=== PATIENT | female | born 1960 | race Caucasian/White ===

== ENCOUNTER → 2018-04-26 | Outpatient (CLI) | payer OTHER ==
[~2018-04-26] MED LIST: ALEN10TA6 PO; CABE0.5T PO; CALC1CAP8 PO; DOXA2TAB9 PO; FLUD0.1T PO; FLUO20TA25 PO; HYDR-3240 PO; HYDR10TA11 PO; HYDR20TA22 PO; LEVO150T PO; LOSA25TA6 PO; VITAMIN B12 PO; WOMEN'S ONE A DAY PO
[2018-04-26 12:04] LABS: ALANINE AMINOTRANSFERASE 24 U/L (12-78); ALBUMIN 3.6 g/dL (3.4-5.0); ANION GAP 7 mmol/L (5-15); CHLORIDE 101 mmol/L (98-107); CREATININE 1.12 mg/dL (0.55-1.02)
[2018-04-26 12:06] LABS: ALKALINE PHOSPHATASE 50 U/L (45-117); BILIRUBIN,TOTAL 0.5 mg/dL (0.2-1.0); TOTAL PROTEIN 7.6 g/dL (6.4-8.2)
== END | disposition home or self-care (01) ==
LOC: STAR 11:14
PROVIDERS: ATTEND Surgery
DX: Z01.818 Encounter for other preprocedural examination (principal)
CPT/HCPCS: 36415; 80053; 93005

== ENCOUNTER 2018-05-02 08:04 | Inpatient (IN) | payer OTHER ==
[2018-04-26 11:48] VITALS: BP 174/88
[~2018-05-02] VITALS: Ht 162.6 cm; Wt 62.7 kg
[~2018-05-02 08:04] MED LIST changes: +BUPIVACAINE/PF-EPI 0.5% 1:200K ONE; -HYDR-3240 PO
[2018-05-02] MEDS ORDERED: LACTATED RINGERS 1,000 ML IV SCH (08:26)
[2018-05-02] MEDS ORDERED: ONDANSETRON ODT 8 MG PO ONE (08:30)
[2018-05-02] MEDS ORDERED: ACETAMINOPHEN 500 MG TABLET PO ONE (08:30)
[2018-05-02] MEDS ORDERED: FENTANYL PF 100 MCG/2ML ONE ×2 (08:34→12:11)
[2018-05-02] MEDS ORDERED: DEXAMETHASONE 4 MG/ML, 1ML ONE ×2 (08:35)
[2018-05-02] MEDS ORDERED: CEFAZOLIN 1,000 MG ONE ×2 (08:35)
[2018-05-02] MEDS ORDERED: PROPOFOL 10 MG/ML, 20ML ONE ×2 (08:35)
[2018-05-02] MEDS ORDERED: LIDOCAINE-MPF 2% ,5ML ONE ×2 (08:35)
[2018-05-02] MEDS ORDERED: ROCURONIUM 10MG/ML,5ML ONE (08:35)
[2018-05-02] MEDS ORDERED: MIDAZOLAM 1 MG/ML, 2ML ONE (08:35)
[2018-05-02] MEDS ORDERED: SUCCINYLCHOLINE 20 MG/ML, 10ML ONE (08:35)
[2018-05-02] MEDS ORDERED: hydrALAzine 20 MG/ML, 1ML IV PRN ×2 (09:00→14:30)
[2018-05-02] MEDS ORDERED: LORazepam 2 MG/ML, 1ML IVPush PRN (09:00)
[2018-05-02] MEDS ORDERED: MEPERIDINE/PF 25MG/0.5ML IVPush PRN (09:00)
[2018-05-02] MEDS ORDERED: OXYcodone 5 MG/5 ML ORAL.SOL UDC PO PRN (09:00)
[2018-05-02] MEDS ORDERED: MIDAZOLAM 1 MG/ML, 2ML IV PRN (09:00)
[2018-05-02] MEDS ORDERED: HYDROmorphone 1 MG/ML, 1ML IV PRN (09:00)
[2018-05-02] MEDS ORDERED: DIAZEPAM 5 MG/ML, 2ML IVPush PRN (09:00)
[2018-05-02] MEDS ORDERED: METOPROLOL 1 MG/ML, 5ML IV PRN (09:00)
[2018-05-02] MEDS ORDERED: EPHEDRINE 50 MG/ML, 1ML IVPush PRN (09:00)
[2018-05-02] MEDS ORDERED: ALBUTEROL SULFATE 2.5 MG/3 ML NPPB PRN (09:00)
[2018-05-02] MEDS ORDERED: MORPHINE SULFATE 4 MG/ML, 1ML IVPush PRN (09:00)
[2018-05-02] MEDS ORDERED: LABETALOL 5MG/ML, 20ML IV PRN (09:00)
[2018-05-02] MEDS ORDERED: DIPHENHYDRAMINE 50 MG/ML, 1ML IVPush PRN (09:00)
[2018-05-02] MEDS ORDERED: PROCHLORPERAZINE 5 MG/ML, 2ML IV PRN (09:00)
[2018-05-02] MEDS ORDERED: PHENYLEPHRINE 10 MG/ML ONE (10:57)
[2018-05-02] MEDS ORDERED: NEOSTIGMINE 1 MG/ML, 10ML ONE (11:06)
[2018-05-02] MEDS ORDERED: GLYCOPYRROLATE 0.4 MG/2 ML, 2ML ONE (11:42)
[2018-05-02] MEDS ORDERED: OXYcodone 5 MG/5 ML ORAL.SOL UDC ONE (12:11)
[2018-05-02] MEDS: FENTANYL PF 100 MCG/2ML IV PRN ×2 (12:13→12:40)
[2018-05-02] MEDS ORDERED: ONDANSETRON 2MG/ML, 2ML IV PRN (14:30)
[2018-05-02] MEDS ORDERED: ACETAMINOPHEN 325 MG TABLET PO PRN (14:30)
[2018-05-02] MEDS ORDERED: ACETAMINOPHEN 650 MG SUPP PR PRN (14:30)
[2018-05-02] MEDS ORDERED: HYDROcodone/APAP 5/325 TABLET PO PRN (14:30)
[2018-05-02] MEDS: HEPARIN 5,000 UNITS/ML, 1ML SQ SCH ×2 (14:30→22:28)
[2018-05-02] MEDS ORDERED: KETOROLAC 30 MG/1 ML IV PRN (14:30)
[2018-05-02 20:00] VITALS: BP 89/51
[2018-05-02] MEDS ORDERED: HYDROCORTISONE 10 MG TABLET PO SCH ×2 (21:00)
[2018-05-02] MEDS: SODIUM CHLORIDE FLUSH 10ML SYR IVF SCH (21:25)
[2018-05-02 23:58] VITALS: BP 104/70
[2018-05-03 02:51] VITALS: BP 134/70
[2018-05-03 04:56] LABS: BASOPHILS # (AUTO) 0.04 x10^3/uL (0-0.1); BASOPHILS % (AUTO) 0 % (0-1); EOSINOPHILS # (AUTO) 0.01 x10^3/uL (0-0.4); EOSINOPHILS % (AUTO) 0 % (1-7); LYMPHOCYTES % (AUTO) 11 % (22-44); MD NO; MEAN CORPUSCULAR HEMOGLOBIN 30.8 pg (27.0-34.8); MEAN CORPUSCULAR HGB CONC 33.4 g/dL (32.4-35.8); MEAN PLATELET VOLUME 9.2 fL (7.4-10.4); MONOCYTES # (AUTO) 0.81 x10^3/uL (0.2-0.8); MONOCYTES % (AUTO) 7 % (2-9); NEUTROPHILS # (AUTO) 10.13 x10^3/uL (1.8-6.8); NEUTROPHILS % (AUTO) 82 % (42-75); PLATELET COUNT 261 x10^3/uL (130-400); RED BLOOD COUNT 4.42 x10^6/uL (3.82-5.3); RED CELL DISTRIBUTION WIDTH 13.4 % (9.6-15.2)
[2018-05-03 05:09] LABS: ALBUMIN 3.4 g/dL (3.4-5.0); ANION GAP 8 mmol/L (5-15); CALCIUM 9.2 mg/dL (8.5-10.1); CHLORIDE 103 mmol/L (98-107)
[2018-05-03] MEDS ORDERED: LEVOTHYROXINE 150 MCG TABLET PO SCH (06:00)
[2018-05-03] MEDS: HEPARIN 5,000 UNITS/ML, 1ML SQ SCH (06:30)
[2018-05-03] MEDS ORDERED: ALENDRONATE 10 MG TABLET PO SCH (06:30)
[2018-05-03 06:59] VITALS: BP 132/80
[2018-05-03] MEDS ORDERED: HYDROCORTISONE 20 MG TABLET PO SCH (07:30)
[2018-05-03] MEDS ORDERED: HYDROCORTISONE 10 MG TABLET ONE (08:01)
[2018-05-03] MEDS: SODIUM CHLORIDE FLUSH 10ML SYR IVF SCH (08:13)
[2018-05-03] MEDS ORDERED: DOXA2TAB9 PO (08:38)
[2018-05-03] MEDS ORDERED: LOSARTAN 25MG TABLET PO SCH (09:00)
[2018-05-03] MEDS ORDERED: CYANOCOBALAMIN 1,000 MCG TABLET PO SCH (09:00)
[2018-05-03] MEDS ORDERED: CALCIUM/VITAMIN D3 250-125 TABLET PO SCH (09:00)
[2018-05-03] MEDS ORDERED: FLUOXETINE HCL 20 MG CAPSULE PO SCH (09:00)
[2018-05-03] MEDS ORDERED: DOXAZOSIN 2MG TABLET PO SCH (09:00)
[2018-05-03 10:30] VITALS: BP 106/66
[2018-05-03] MEDS ORDERED: HYDR-3240 PO (10:37)
[2018-05-05] MEDS ORDERED: CABERGOLINE 0.5 MG TABLET PO SCH (09:00)
[2018-05-05] MEDS ORDERED: FLUDROCORTISONE 0.1 MG TABLET PO SCH (20:00)
[2018-05-09] MEDS ORDERED: FLUDROCORTISONE 0.1 MG TABLET PO SCH (09:00)
== END 2018-05-03 11:10 | disposition home or self-care (01) | DRG 630 ==
LOC: ORIP 08:04 → 4NOR 13:43 → DCLOUNGE 05-03 10:59
PROVIDERS: ADMIT Surgery; ATTEND Surgery
PROC: 03HY32Z Insertion of Monitoring Device into Upper Artery, Percutaneous Approach (ICD-10-PCS; 2018-05-02)
PROC: 0DBW0ZZ Excision of Peritoneum, Open Approach (ICD-10-PCS; principal; 2018-05-02 09:45)
DX: E31.22 Multiple endocrine neoplasia [MEN] type IIA (principal); M19.90 Unspecified osteoarthritis, unspecified site; E11.9 Type 2 diabetes mellitus without complications; D48.7 Neoplasm of uncertain behavior of other specified sites; I10 Essential (primary) hypertension; Z90.710 Acquired absence of both cervix and uterus; Z80.8 Family history of malignant neoplasm of other organs or systems
CPT/HCPCS: 36415; 80048; 82040; 82962; 85025; 88305; G0378; J0690; J1100; J2250; J2704; J2710; J3010; J3490; Q0162; J0330; J2370; J7120